=== PATIENT | female | born 1955 | race Caucasian/White ===

== ENCOUNTER 2020-03-26 13:49 | Emergency (ER) | payer OTHER, SELFPAY ==
[2020-03-26 14:29] VITALS: BP 154/72; PULSE 84; RESP 16; TEMP 36.9; O2SAT 100; BMI 26.7
--- NOTE | 2020-03-26 14:44 | CT_ITS ---
EXAMINATION: CT HEAD WITHOUT CONTRAST CT FACIAL BONES WITHOUT CONTRAST CT CERVICAL SPINE WITHOUT CONTRAST CLINICAL INFORMATION: Fall. Trauma. COMPARISON: None. TECHNIQUE: Imaging was performed from the skull base to vertex without intravenous administration of contrast. In addition, helical noncontrast CT imaging was acquired through the cervical spine and facial bones and source images were reviewed along with axial reconstructions and sagittal and coronal MPRs. [This CT examination was performed using dose optimization techniques as appropriate, variously including the following: *Automated exposure control *Adjustment of mA and/or kV according to patient size (this includes techniques or standardized protocols for targeted exams where dose is matched to indication/reason for exam; i.e. extremities or head) *Use of iterative reconstruction technique] DLP: 1056 mGy-cm FINDINGS: HEAD: There is a scalp hematoma the left orbit and facial bone. There is no skull fracture. There is no acute intracranial abnormality. No intracranial mass, hemorrhage, or midline shift is visualized. The ventricles and sulci are age-appropriate. No extra-axial collections are identified. FACIAL BONES: There is soft tissue swelling over the left orbit and cheek. There is periapical lucency around the root of the left 12th tooth in the maxilla. There is no acute change of the facial bones. There is no facial bone fracture. Mandible and TMJ joints are intact. The orbits and retrobulbar structures are normal. CERVICAL SPINE: There is no evidence of acute cervical spine fracture. Vertebral bodies remain normal in height. There is multilevel facet joint arthrosis. Mild degenerative lipping at the anterior endplates cervical vertebrae. Slight disc height narrowing C5-C6. No pre- or paravertebral soft tissue abnormality is identified. Limited assessment of the lung apices is unremarkable. CT/CT cervical spine wo con IMPRESSION: 1. No acute intracranial process or discrete facial bone fracture. Scalp hematoma the left orbit and facial bone. 2. No acute cervical spine fracture or traumatic subluxation. Periapical lucency around the root of the left 12th tooth concerning for abscess.
--- NOTE | 2020-03-26 14:45 | ED.FALL ---
HPI - Fall General Chief Complaint: Fall Stated Complaint: fell hit head Time Seen by Provider: 03/26/20 14:44 Source: patient Mode of arrival: ambulatory Limitations: no limitations History of Present Illness HPI Narrative: 64 y/o female presenting with left eye and facial pain after she tripped and fell onto concrete while she was out walking her dogs. She did not lose consciousness. She is not on aspirin or blood thinngers. She has a headache on the left side. She also has some small abrasions on her knees per her report. She denies dizziness or lightheadedness before she fell. She denies chest pain, SOB or neck pain. MD complaint: fall Onset (ago): hour(s) (3) Fall from: standing Fall witnessed: yes, by family Place fall occurred: street Loss of consciousness: none Prolonged down time: no Symptoms prior to fall: none Context: tripped/slipped Location of injury: face Severity: moderate Severity scale (1-10): 5 Quality: aching Associated symptoms (after fall): headache Related Data Previous Rx's Medication Instructions Recorded amoxicillin-pot clavulanate 1 tab PO Q12H #20 tab 03/26/20 [Augmentin] ibuprofen 600 mg PO Q8H PRN #30 tab 03/26/20 Allergies Allergy/AdvReac Type Severity Reaction Status Date / Time No Known Allergies Allergy Verified 03/26/20 18:03 [No Known Allergies*] Review of Systems Review of Systems: Constitutional: No Fever, No Chills ENT/Mouth: No dental trauma Eyes: + Eye Pain, + Swelling, No Redness Cardiovascular: No Chest Pain, No SOB Respiratory: No Cough, No dyspnea Gastrointestinal: No Nausea, No Vomiting, No Diarrhea, No abdominal Pain Musculoskeletal: No joint pain, No Myalgias Skin: + Skin Lesions, No rash Neuro: No Weakness, No Numbness, No Dizziness, + Headache Heme/Lymph: + Bruising, No Lymphadenopathy PMFSH Past Medical History Attestation statement: The following information was validated with the patient. Social History Social History Advance Directives: No Advance Directives Information Provided: Yes Physical Exam Vital Signs: Vital Signs: Last Vital Signs Temp 97.9 F 03/26/20 16:02 Pulse 76 03/26/20 16:02 Resp 18 03/26/20 16:02 BP 136/77 03/26/20 16:02 Pulse Ox 99 03/26/20 16:02 Body Mass Index 26.7 Appearance: Alert. Oriented X3. Obvious ecchymosis to left periorbital area Eyes: Pupils equal, round and reactive to light. Left eye with significant periorbial edema and ecchymosis. EOMI. Tenderness to left orbit ENT: Pharynx normal. No dental trauma Neck: Normal inspection. Neck supple. CVS: Normal heart rate and rhythm. Pulses normal. Respiratory: No respiratory distress. Breath sounds normal. Skin: Skin warm and dry. Normal skin color. small superficial laceration lateral to left eyebrow Extremities: No lower extremity edema. Neuro: Oriented X 3. No motor deficit. No sensory deficit. Course Course Course Narrative: 64 y/o female presenting s/p mechanical fall with facial trauma. Will get CT head/facial bones and C-spine. No anticoagulation and neuros intact at this time. Reevaluation(s) Reevaluation #1: CT scan significantly delayed. Now complete. Patient reports headache and eye pain are okay refusing tylenol at this time. Reevaluation #2: CT scan showed possible dental abscess - will treat with abx. No acute traumatic injuries. Stable for d/c. Procedures Laceration Laceration 1: Site: face Side (If applicable): left Size (cm): 1.5 Description: linear Depth: simple, single layer Pre-repair: irrigated extensively Skin layer closed with: other (ster-strips ) MDM - Fall MDM Narrative Medical decision making narrative: facial bone fracutre, cervical spinal fracture traumatic ICH considered. Differential Diagnosis Differential diagnosis: Likely syncope, fracture, compression fracture and concussion without loss of consciousness Critical Care Time Critical Care Time Critical Care Time: No Discharge Plan Discharge Clinical Impression: Abrasion, Laceration Black eye of left side Qualifiers: Encounter type: initial encounter Qualified Code(s): S00.12XA - Contusion of left eyelid and periocular area, initial encounter Patient Disposition: Home, Self-Care Instructions: Dental Abscess (ED), Black Eye (ED), Abrasion (ED) Additional Instructions: Your CT scans today showed no acute traumatic injuries. CT scan did show evidence of possible dental abscess - take the prescribed antibiotics and follow up with your dentist for further evaluation. Use ice several times per day to help with pain and swelling. Take over the counter Tylenol and/or ibuprofen as needed for headache and discomfort. Use artifical tears to keep your eye moistened as needed. Keep the streri-strips in place until they fall off on their own, do not pull off. Expect them to fall off in 5-7 days. Use triple antibiotic ointment to your facial abrasions. Follow up with your doctor as needed. If you develop worsening headache, nausea, vomiting, vision changes, or any other concerning symptom come back to the ER for further evaluation. Prescriptions: New amoxicillin-pot clavulanate [Augmentin] 875-125 mg tablet 1 tab PO Q12H Qty: 20 RF: 0 ibuprofen 600 mg tablet 600 mg PO Q8H PRN (Reason: pain) Qty: 30 RF: 0
[2020-03-26 16:02] VITALS: BP 136/77; PULSE 76; RESP 18; TEMP 36.6; O2SAT 99
--- NOTE | 2020-03-26 18:36 | PC.NURSE ---
pt left side of face lac cleaned and steri stripped with dermabond per [facility]EL SIU AND DSD APPLIED.
== END 2020-03-26 18:41 | disposition home or self-care (01) ==
PROVIDERS: Emergency Provider Emergency Medicine; PCP Internal Medicine
DX: S01.112A Laceration without foreign body of left eyelid and periocular area, initial encounter (principal); S00.12XA Contusion of left eyelid and periocular area, initial encounter; W01.198A Fall on same level from slipping, tripping and stumbling with subsequent striking against other object, initial encounter; K04.7 Periapical abscess without sinus; Y93.K1 Activity, walking an animal; Y92.480 Sidewalk as the place of occurrence of the external cause; Y99.9 Unspecified external cause status
CPT/HCPCS: 70450; 70486; 72125; 99284